=== PATIENT | male | born 1930 | race Caucasian/White ===

== ENCOUNTER 2019-04-11 13:43 | Inpatient (IN) ==
--- NOTE | 2019-04-11 14:34 | Diag Imaging Result Doc PS360 ---
EXAM: CHEST-2 VIEWS - 04/11/2019 HISTORY: fever, cough TECHNIQUE: Chest two views COMPARISON: 03/18/2019 FINDINGS: Heart size is normal. There is tortuosity thoracic aorta similar to prior. Inspiration is mildly shallow. There are COPD changes. There is chronic pleural thickening along the posterior right thorax that the right apex. There is mild pulmonary scarring at the right apex. There is no acute consolidation, pleural effusion, or pneumothorax identified. IMPRESSION: Mildly shallow inspiration. COPD changes. Chronic pleural thickening on the right. No discrete pneumonia. Electronically signed by Ander Katz 04/11/2019 2:32 PM
[2019-04-11 16:15] LABS: BASO# 0.04 X1000 (0.0-0.2); BASO% 0.3 % (0.0-0.8); HEMATOCRIT 39.5 % (42.0-52.0); HEMOGLOBIN 11.9 g/dL (14.0-18.0); IMM GRAN% 0.7 % (0.0-0.5); LYMPH# 1.07 X1000 (1.2-3.4); MCH 29.8 PG (27-31); MCHC 30.1 g/dL (33-37); MCV 98.8 FL (81-99); MONO# 1.56 X1000 (0.11-0.59); MONO% 10.3 % (1.7-9.3); MPV 11.5 FL (7.4-10.4); NEUT# 12.43 X1000 (1.4-6.5); NEUT% 81.7 % (42.2-75.2); PLT 180 X1000 (130-400)
[2019-04-11] MEDS ORDERED: ZOSYN 3.375 GM in NS 50 ML IV ONE (16:26)
[2019-04-11] MEDS ORDERED: VANCOMYCIN 1 GM/NS 1 GM/250 ML IVPB IV ONE (16:29)
[2019-04-11 16:34] LABS: AGAP 14; ALB/GLOB RATIO 1.1; ALKALINE PHOSPHATASE 105 U/L (32-122); BUN 29 mg/dL (8-22); CALCIUM 9.6 mg/dL (8.8-10.2); CHLORIDE 97 mmol/L (98-107); COSMO 287; CREATININE 0.9 mg/dL (0.7-1.2); ESTIMATED GFR > 60; GLUCOSE 122 mg/dL (70-104); GOT 26 U/L (10-34); GPT 20 U/L (10-44); POTASSIUM 5.1 mmol/L (3.5-5.1); SODIUM 140 mmol/L (136-145); TCO2 29 mmol/L (25-35); TOTAL BILIRUBIN 0.23 mg/dL (0.20-1.00); TOTAL PROTEIN 7.8 g/dL (6.3-8.3)
--- NOTE | 2019-04-11 17:55 | PROVIDER DOCUMENTATION ---
This chart was entered by Kera Shirley Scribe, acting as scribe for Tea Wilhelm MD. HPI-Respiratory General - General Chief Complaint: Cough Stated Complaint: COUGHING Time Seen by Provider: 04/11/19 14:01 Source: family Allergies/Adverse Reactions: Patient Allergies Allergy/AdvReac Type Severity Reaction Status Date / Time adhesive Allergy Severe RASH Verified 04/11/19 17:45 lorazepam [From Ativan] AdvReac HYPERACTIVI Verified 04/11/19 17:45 TY zolpidem [From Ambien] AdvReac Hyperactivi Verified 04/11/19 17:45 ty Home Medications: Home Medication List Medication Instructions Recorded Confirmed Last Taken Type Furosemide [Lasix] 40 mg PEG QAM 12/07/17 04/12/19 08/11/18 21:00 History 40 Levothyroxine [Synthroid] 200 microgm PEG DAILY 12/07/17 04/12/19 08/11/18 08:00 History 200 Omeprazole Oral Susp [Prilosec 20 mg PEG BID 12/07/17 04/12/19 08/11/18 18:00 History Oral Suspension] 20 Paroxetine HCl 20 mg PEG QAM #30 tab 12/31/17 04/12/19 08/11/18 08:00 Rx 20 Ropinirole HCl [Requip] 2 mg PEG QHS #30 tab 12/31/17 04/12/19 08/11/18 21:00 Rx 2 Acetaminophen Liquid [Tylenol 1,000 mg PEG 4XDAY PRN PRN 02/13/18 04/12/19 08/11/18 21:00 History Liquid] 1000 Donepezil [Aricept] 10 mg PEG DAILY 02/13/18 04/12/19 08/11/18 08:00 History 10 Gabapentin 5 - 10 ml PEG QHS 02/13/18 04/12/19 08/11/18 21:00 History 5 Tramadol HCl [Ultram] 50 mg PEG QHS 02/13/18 04/12/19 08/11/18 21:00 History 50 Sucralfate [Carafate Liquid] 1 gm PEG Q6H udc 02/17/18 04/12/19 08/11/18 21:00 Rx 1 Colesevelam Powder [Welchol Powder] 1 dose PEG BID 08/09/18 04/12/19 08/10/18 History 1 Modafinil 1 tab PEG DAILY 08/09/18 04/12/19 08/11/18 08:00 History 1 Fexofenadine HCl [Children's 2 tsp PEG BID 01/31/19 04/12/19 Unknown History Rashida Allergy] Montelukast Sodium [Singulair] 10 mg PO QHS 04/12/19 04/12/19 Unknown History Albuterol 2.5MG/Ipratrop 0.5MG 3 ml INH RTQ4H neb 04/14/19 Unknown Rx [Duoneb (A & A)] Amoxicillin/Pot Clavulanate 600 ml PO Q12HR #100 bottle 04/14/19 Unknown Rx [Augmentin Liquid] Budesonide/Formoterol Inhaler 2 puff INH RTBID inhaler 04/14/19 Unknown Rx [Symbicort 80/4.5 Microgm Inhaler] Carvedilol [Coreg] 3.125 mg PO BID #60 tab 04/14/19 Unknown Rx Dicyclomine [Bentyl] 10 mg PEG BID cap 04/14/19 Unknown Rx Potassium Chloride 10% Liquid 20 meq PEG DAILY udc 04/14/19 Unknown Rx Ropinirole [Requip] 2 mg PEG QHS tab 04/14/19 Unknown Rx - History of Present Illness-Resp Nature of Presenting Problem: pt is an 88 yowm c/o at bedside sts pt has had productive cough w/intermittent fever for 3-4days. sts pt has hx of pneumonia w/aspiration and wanted to come to er so pt could be checked out instead of making pcp appt. pt has JG tube, was placed in December. pt has hx of throat cancer and finished chemo and radiation in 2002. sts they usually tx his pnu at home w/levaquin and other antibiotics. pcp is Dr. Velazco. o2 is in place. Quality of Pain: reports: none Severity in ED: reports: moderate Onset/Duration: reports: 3 days ago, 4 days ago Timing: reports: still present Context: reports: aspiration/choking, other (hx pnu) Exposure: reports: unknown cause Cough Quality/Degree: reports: productive cough Episode Frequency: occasional episodes Current Respiratory Medication Therapy: Initiated see nurses note Modifying Factors: improves with: lying down (worsens) Associated Symptoms: reports: fever/chills Similar Symptoms Previously?: Yes Review of Systems - Adult - REVIEW OF SYSTEMS - ADULT Constitutional: reports: see HPI, fever. denies: chills, fatique, night sweats Eyes: reports: no symptoms reported Ears, Nose, Mouth & Throat: reports: no symptoms reported Cardiovascular: reports: no symptoms reported Respiratory: reports: see HPI, cough, excessive sputum production. denies: dyspnea on exertion, hemoptysis, wheezing Gastrointestinal: reports: no symptoms reported Genitourinary: reports: no symptoms reported Musculoskeletal: reports: no symptoms reported Integumentary: reports: no symptoms reported Neurological: reports: no symptoms reported Psychiatric: reports: no symptoms reported Endocrine: reports: no symptoms reported Hematologic/Lymphatic: reports: no symptoms reported Allergic/Immunologic: reports: no symptoms reported All Other Systems: Reviewed and Negative Past History - Adult - PAST MEDICAL HISTORY-ADULT Review of Records: reports: Nursing Assessment Review, Medications Reviewed, Social history reviewed & non-contributory. 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 ) Obstetrical/Gynecological: reports: denies history Genitourinary: reports: denies history, kidney stones Musculoskeletal: reports: denies history Neurological: reports: denies history Endocrine/Immune: reports: cancer (throat), thyroid disorder (hypothyroid) Other Conditions: reports: other cancer (throat), cataract/glaucoma, MRSA, other (sleep apnea) - PRIOR SURGERIES/PROCEDURES Surgical/Procedure History: reports: cholecystectomy, indwelling device (JG tube), orthopedic (extremity) (toe amputation), joint replacement (knee) - IMMUNIZATION STATUS Childhood Immunizations: See Nurse Assessment Flu Vaccine: See Nurse Assessment - FAMILY HISTORY Family History: reviewed, not pertinent - SOCIAL HISTORY Smoking: other (former smoker) Substance Use: none/never Physical Exam-General - PHYSICAL EXAM-ADULT Initial Vital Signs Reviewed: Yes - CONSTITUTIONAL General Appearance: alert, mild distress. negative: cachetic, lethargic, combative - EYES Eyes: PERRL/EOMI, pink conjunctivae - HEAD, EARS, NOSE, MOUTH & THROAT HENMT: normocephalic/atraumatic, moist mucous membranes - NECK Neck: non-tender, full range of motion, supple, normal inspection - RESPIRATORY Respiratory: chest non-tender, normal breath sounds, no pleuratic chest pain, no respiratory distress, no accessory muscle use, rhonchi (bilat low bases). ne gative: lungs clear, wheezing, decreased rate, increased rate - CARDIOVASCULAR Cardiovascular: normal peripheral pulses, no edema, no gallop, no JVD, no murmur , tachycardia. negative: regular rate, rhythm, JVD, bradycardia, irregularly irregular - GASTROINTESTINAL (ABDOMEN) Abdominal Exam: normal bowel sounds, non tender, soft - MUSCULOSKELETAL Back Exam: normal inspection Extremity: normal range of motion, non-tender, normal inspection Peripheral Pulses: radial (R): 2+, radial (L): 2+ - SKIN Integumentary: normal color, normal turgor, warm/dry - NEUROLOGIC Neurologic: grossly normal, no motor/sensory deficits - PSYCHIATRIC Psych/Mental Status: normal mood/affect, normal thought content, normal thought process, oriented x 3 Progress - PLAN OF CARE/RESULTS Progress/Plan/Lab Results: Orders Category Date Time Status Admit [facility] Routine AdmDCTranf 04/11/19 19:59 Active Activity - Up with Assistance ORDERED Care 04/11/19 19:59 Active Apply Mechanical Device [QM] ORDERED Care 04/11/19 19:59 Completed Cardiac Monitoring DIRECTED Care 04/11/19 18:38 Completed DVT/PE Risk Assess/Protocol [QM] ORDERED Care 04/11/19 19:59 Active Elevate Head of Bed DIRECTED Care 04/11/19 19:59 Active Encourage Fluids DIRECTED Care 04/11/19 19:59 Active IV Insertion ORDERED Care 04/11/19 18:38 Completed Intake and Output-Strict Q 8-HR ASSESS Care 04/11/19 19:59 Active Notify MD of + Sepsis Screen NOW Care 04/11/19 18:38 Completed Notify Physician As Ordered Care 04/11/19 18:38 Active Nursing- Assist w/ IS as order ORDERED Care 04/11/19 19:59 Active Resuscitation Status Routine Care 04/11/19 17:25 Completed Turn, Cough and Deep Breathe Q2HR Care 04/11/19 19:59 Active Vital Signs Order Q 8-HR ASSESS Care 04/11/19 19:59 Active CHEST-2 VIEWS [RAD] Routine Exams 04/12/19 06:00 Completed CHEST-2 VIEWS [RAD] Stat Exams 04/11/19 14:02 Completed BLOOD CULTURE [BLDCUL] Stat Lab 04/11/19 15:42 Completed CBC WITH DIFF [HEME] Routine Lab 04/12/19 05:40 Completed CBC WITH DIFF [HEME] Stat Lab 04/11/19 15:37 Completed CK PROFILE [SP CHEM] Stat Lab 04/11/19 15:37 Completed COMPREHENSIVE METABOLIC PANEL [CHEM] Routine Lab 04/12/19 05:40 Completed COMPREHENSIVE METABOLIC PANEL [CHEM] Stat Lab 04/11/19 15:37 Completed INFLUENZA SCREEN A/B Stat Lab 04/11/19 16:14 Completed LACTATE, PLASMA [CHEM] Lab 04/11/19 18:46 Completed LACTATE, PLASMA [CHEM] Lab 04/11/19 22:40 Completed LACTATE, PLASMA [CHEM] Stat Lab 04/11/19 15:37 Completed MAGNESIUM [CHEM] Stat Lab 04/11/19 15:37 Completed PROTIME WITH INR [COAG] Stat Lab 04/11/19 15:37 Completed PTT [COAG] Stat Lab 04/11/19 15:37 Completed SPUTUM CULTURE WITH GRAM STAIN [RM] Routine Lab 04/13/19 04:00 Completed TROPONIN T Stat Lab 04/11/19 15:37 Completed UA [URINALYSIS W/POSS RFLX CULT] [URINALYSIS] Stat Lab 04/11/19 17:49 Completed URINALYSIS W/POSS RFLX CULT [URINALYSIS] Stat Lab 04/11/19 18:46 Completed 0.9% Sodium Chloride Inj [Ns] 1,000 ml Med 04/11/19 19:59 Discontinued IV 65 mls/hr Acetaminophen Liquid [Tylenol Liquid] Med 04/11/19 19:59 Discontinued 1,000 mg PEG 4XDAY PRN PRN Acetaminophen [Tylenol] Med 04/11/19 19:59 Discontinued 650 mg PO Q4H PRN PRN Albuterol 2.5MG/Ipratrop 0.5MG [Duoneb (A & A)] Med 04/11/19 19:59 Discontinued 3 ml INH RTQ4H Budesonide/Formoterol Inhaler [Symbicort 80/4.5 Microgm Med 04/12/19 07:30 Discontinued Inhaler] 2 puff INH RTBID Colesevelam Powder [Welchol Powder] Med 04/11/19 21:00 Discontinued 3.75 gm PEG BID Dicyclomine [Bentyl] Med 04/11/19 21:00 Discontinued 10 mg PEG BID Diphenhydram/PE/Dm/Acetamin/GG [Mucinex Fast-Max Day- Med 04/11/19 21:00 Discontinued Nite Liq] 2 tsp PO QHS Donepezil [Aricept] Med 04/12/19 09:00 Discontinued 10 mg PEG DAILY Fexofenadine HCl [Children's Rashida Allergy] Med 04/11/19 21:00 Discontinued 2 tsp PEG BID Furosemide [Lasix] Med 04/12/19 09:00 Discontinued 40 mg PEG QAM Gabapentin [Neurontin Liquid] Med 04/11/19 21:00 Discontinued 500 mg PEG QHS Levothyroxine [Synthroid] Med 04/12/19 07:00 Discontinued 200 microgm PEG DAILY@0700 Modafinil Med 04/12/19 09:00 Discontinued 1 tab PEG DAILY Omeprazole Oral Susp [Prilosec Oral Suspension] Med 04/12/19 09:00 Disconti nued 20 mg MISC QAM Paroxetine [Paxil] Med 04/12/19 09:00 Discontinued 20 mg PEG QAM Piperacillin/Tazobactam [Zosyn] 3.375 gm Med 04/11/19 16:26 Discontinued 0.9% Sodium Chloride Inj [Ns] 50 ml IV NOW Piperacillin/Tazobactam [Zosyn] 3.375 gm Med 04/11/19 23:00 Discontinued 0.9% Sodium Chloride Inj [Ns] 50 ml IV Q6H Potassium Chloride 10% Liquid Med 04/12/19 09:00 Discontinued 20 meq PEG DAILY Ropinirole [Requip] Med 04/11/19 21:00 Discontinued 2 mg PEG QHS Sucralfate [Carafate Liquid] Med 04/11/19 19:59 Discontinued 1 gm PEG Q6H Tramadol [Ultram] Med 04/11/19 21:00 Discontinued 50 mg PEG QHS Vancomycin 1 gm/Ns Med 04/11/19 16:29 Discontinued 1 gm in 250 ml IV NOW Aerosol Treatments Routine Oth 04/11/19 19:59 Completed Aerosol Treatments Stat Oth 04/11/19 19:59 Completed Incentive Spirometer Routine Ot 04/11/19 19:59 Completed MDI Treatments Stat Ot 04/11/19 19:59 Completed Oxygen Device Routine Ot 04/11/19 19:59 Completed Oxygen Device Stat [facility] 04/11/19 18:38 Completed Pulse Oximetry Routine Ot 04/11/19 19:59 Completed Suction Therapy Stat Ot 04/11/19 16:51 Completed Transfer/Admit Order [TRANSFER] Routine Transfer 04/11/19 17:22 Completed Result Diagrams: 04/12/19 05:40 04/12/19 05:40 - XRAY 1 XRAY Study: Chest Impression: Abnormal, See EMR Report ( EXAM: CHEST-2 VIEWS - 04/11/2019 HISTORY: fever, cough TECHNIQUE: Chest two views COMPARISON: 03/18/2019 FINDINGS: Heart size is normal. There is tortuosity thoracic aorta similar to prior. Inspiration is mildly shallow. There are COPD changes. There is chronic pleural thickening along the posterior right thorax that the right apex. There is mild pulmonary scarring at the right apex. There is no acute consolidation, pleural effusion, or pneumothorax identified. IMPRESSION: Mildly shallow inspiration. COPD changes. Chronic pleural thickening on the right. No discrete pneumonia. Electronically signed by Ander Katz 04/11/2019 2:32 PM) - CONSULTS/PCP/HOSPITALIST Notification #1 *Consult/PCP/Hospitalist*: Dr. Jordan Time Discussed: 16:46 Consult Disposition: Will see in ED Departure - Departure Date of Disposition Decision: 04/11/19 Time of Disposition Decision: 17:55 DIAGNOSIS: Pneumonia, Aspiration pneumonia due to gastric secretions Disposition: ADMITTED INPATIENT 09 Certified Medical Emergency: Emergent Condition: Stable - Critical Care Note This patient required my direct & personal management of CC.: No Attestation - Physician/ ETIENNE Attestation Patient care was provided by Advanced Practice Provider:: No The physician spent face to face time with patient:: Yes Advanced Practice Provider documentation review:: Supervising physician onsite and consulted in the evaluation and care of this patient. The physician did have a face to face encounter with the patient. This chart was documented by the indicated scribe, (Krea Shirley Scribe) and accurately reflects the services I performed and decisions made by me, Tea Wilhelm MD, as attested by the provider's signature.
[2019-04-11 17:59] LABS: URINE SOURCE CLEAN CATCH
[2019-04-11 18:03] LABS: BILIRUBIN URINE NEGATIVE (NEGATIVE); BLOOD URINE NEGATIVE (NEGATIVE); COLOR YELLOW; GLUCOSE URINE NEGATIVE (NEGATIVE); KETONE URINE NEGATIVE (NEGATIVE); LEUKOCYTES URINE NEGATIVE (NEGATIVE); NITRITE URINE NEGATIVE (NEGATIVE); PROTEIN URINE TRACE mg/dL (NEGATIVE); SP GRAVITY URINE 1.022; TURBIDITY URINE CLEAR (CLEAR); UROBILINOGEN URINE NORMAL (NORMAL)
[2019-04-11 18:05] LABS: UR EPITHELIAL CELLS <10 /HPF (<10); URINE BACTERIA NEGATIVE /HPF; URINE RBC <10 /HPF (<10); URINE WBC <10 /HPF (<10)
--- NOTE | 2019-04-11 18:10 | HISTORY AND PHYSICAL ---
HISTORY OF PRESENT ILLNESS: Mr. Reis is an 88-year-old male patient of Dr. Luisito Velazco. 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 He has had recurrent aspiration pneumonia. He has osteoarthritis, gastroesophageal reflux disease, restless legs syndrome, depression, and mild dysphagia and hypothyroidism. He presented for evaluation. The last 3 or 4 days, he has had increased cough. His is concerned. She felt like he had a little bit of delirium today and he just finished a 2 week course of Levaquin, I believe, as an outpatient. I think he had a G-tube placed in 2012. I think they did a J-tube to G-tube in 2018 and that has cut down his aspiration under Dr. Sylvester's direction. He is also followed by Dr. Burgess. In the emergency room, he did not have a true infiltrate on x-ray, but he had some rhonchi. His white count was 15,000. was concerned about his coughing and decided to go ahead and admit him and treat him for aspiration pneumonitis. We will check another x-ray in the morning. PAST MEDICAL HISTORY: 1. History of squamous cell carcinoma of the base of the tongue, status post radiation treatment and chemotherapy in 2002. 2. Recurrent aspiration pneumonia. 3. Osteoarthritis. 4. Reflux disease. 5. Vascular dementia. 6. Restless legs syndrome. 7. Depression. 8. Myelodysplasia. 9. He fell while in the [employer]. He was over by [place]. He fell about 40 or 50 feet and crushed and broke his right ankle. He has had a foot sore and I think that same foot, the right foot in the past, which had MRSA that has healed well. REVIEW OF HIS LIST OF MEDICATION: He is on levothyroxine 200 mcg daily, Prilosec liquid 20 mg in 5 mL twice a day, Carafate liquid 4 times a day, Aricept 10 mg once a day, Lasix 40 mg 1 to 2 tablets a day, modafinil which is Provigil 200 mg tablet daily, Paxil 20 mg a day, Requip 2 mg 1 at bedtime, tramadol 50 mg at bedtime, Neurontin 250 mg in 5 mL 5 to 10 mL at bedtime, dicyclomine 10 mg or 5 mL 2 times a day, Welchol 3.75 g powder 2 times a day, Rashida 2 teaspoons twice a day, Mucinex at bedtime, potassium chloride 10% 3 teaspoons daily in the morning, Singulair 10 mg at bedtime and Tylenol liquid as needed for pain. ALLERGIES: Patient is allergic to adhesive tape, unable to tolerate Ativan. FAMILY HISTORY: The patient's mother passed at age 82 secondary to complications of metastatic breast cancer. The patient's father passed in his 80s secondary to complications of head and neck cancer. SOCIAL HISTORY: Patient is former smoker, having smoked 2 packs cigarettes per day for 30+ years. Stopped in 1979. Denies alcohol or illicit drugs. REVIEW OF SYSTEMS: General: He is not aware of any weight gain or loss. They did not record any fever, but suspects subjective fever with some delirium. HEENT: No change in visual or hearing acuity. Neck: No neck pain or adenopathy. Respiratory: No increased work of breathing or dyspnea, but he has had increased cough and bronchial irritation in the last 3 or 4 days. No real significant sputum production. Cardiovascular: No chest pain or tachy palpitation. Gastrointestinal and Genitourinary: No gross hematuria or dysuria. He has constant chronic diarrhea since he started the tube feeding. He is on Welchol now. Musculoskeletal/Neurologic: No focal complaints or changes. Endocrinologic/hemologic: No significant history. He does have myelodysplasia by history. PHYSICAL EXAMINATION: GENERAL: In the emergency room he is awake and alert. He is coughing pretty frequently. Breathing comfortably. Has O2 per nasal cannula in place. He is alert and oriented x3. His is at the bedside. VITAL SIGNS: Temp 99.1 degrees, pulse 109, respirations 19, blood pressure 138/75. HEENT: Pupils are equal and round. NECK: No distended neck veins. CVP estimated less than 6 cm from right atrium. LUNGS: Clear anterior and lateral. You can hear some scattered rhonchi at times, but appears to clear. CARDIOVASCULAR: Regular rhythm and rate without murmur or S3. PMI nondisplaced. Carotid, radial, and femoral pulses 2+ and symmetrical. ABDOMEN: Soft. EXTREMITIES: Feet are good capillary refill and warm. Pedal pulses 2+ and symmetrical. ABDOMEN: Is soft, nondistended. The insertion site of the JG tube is unremarkable. SKIN: Warm and dry. No edema. His nails are long, thick. LABORATORY DATA: White count 15,200. Hematocrit is 39. Platelet count is 180,000. Sodium 140, potassium 5.1, chloride 97, BUN 29, creatinine 0.9, blood sugar is 122. Liver functions unremarkable. Alkaline phosphatase 105. Albumin is 4.0. Chest x-ray mildly shallow inspiration, COPD changes, chronic pleural thickening of the right. No discrete pneumonia. ASSESSMENT AND PLAN: 1. Has a propensity for aspiration. I do not see any infiltrate on the x-ray, but his white count is mildly elevated and he has bronchial irritation. Just finished a 2 week course of Levaquin. I will treat him empirically for aspiration pneumonitis. We will give him some albuterol breathing treatments. He may benefit from a steroid breathing treatment as well. 2. He has a JG tube and I think he gets feeding at night. I think I will hold the feeding tonight just to give him a little bit of a break and see if he can show some improvement, especially of this irritation and reflux. He is already on a proton pump inhibitor. I will continue that. 3. History of primary hypothyroidism. Continue his Synthroid. We will check his T4 and TSH. 4. History of gastroesophageal reflux and numerous episodes of aspiration pneumonitis. Continue his Carafate 1 g q.6 and I think he is getting omeprazole 20 mg. I think he is getting that twice a day. 5. History of squamous cell carcinoma of the base of the tongue. Status post radiation treatment chemotherapy back in 2002. 6. History of vascular dementia. Continue his current Aricept. 7. Restless legs syndrome. We will continue his Requip. 8. Depression. 9. Myelodysplasia. Blood counts appear to be pretty stable. cc: Donald Jordan MD
[2019-04-11 18:54] LABS: URINE SOURCE CLEAN CATCH
[2019-04-11 18:58] LABS: BILIRUBIN URINE NEGATIVE (NEGATIVE); BLOOD URINE NEGATIVE (NEGATIVE); COLOR YELLOW; GLUCOSE URINE NEGATIVE (NEGATIVE); KETONE URINE NEGATIVE (NEGATIVE); LEUKOCYTES URINE NEGATIVE (NEGATIVE); NITRITE URINE NEGATIVE (NEGATIVE); PH URINE 7.5; PROTEIN URINE TRACE mg/dL (NEGATIVE); SP GRAVITY URINE 1.022; TURBIDITY URINE CLEAR (CLEAR); UROBILINOGEN URINE NORMAL (NORMAL)
[2019-04-11 19:00] LABS: UR EPITHELIAL CELLS <10 /HPF (<10); URINE BACTERIA NEGATIVE /HPF; URINE RBC <10 /HPF (<10); URINE WBC <10 /HPF (<10)
[2019-04-11 19:23] LABS: INR 1.06
[2019-04-11 19:24] LABS: PTT 33.2 Seconds (22.3-41.8)
[2019-04-11] MEDS ORDERED: TYLENOL PO PRN (19:59)
[2019-04-11] MEDS ORDERED: TYLENOL LIQUID PEG PRN (19:59)
[2019-04-11] MEDS: WELCHOL POWDER PEG SCH (20:42)
[2019-04-11] MEDS ORDERED: ULTRAM PEG SCH (21:00)
[2019-04-11] MEDS ORDERED: [UNRECOGNIZED DRUG - REMARK] PEG SCH (21:00)
[2019-04-11] MEDS ORDERED: [UNRECOGNIZED DRUG - MIXTURE] PO SCH (21:00)
[2019-04-11] MEDS: NS 1,000 ML IV SCH (22:28)
[2019-04-11] MEDS: ZOSYN 3.375 GM in NS 50 ML IV SCH (22:29)
[2019-04-11] MEDS: CARAFATE LIQUID PEG SCH (22:30)
[2019-04-11] MEDS: BENTYL PEG SCH (22:31)
[2019-04-11] MEDS: REQUIP PEG SCH (22:31)
[2019-04-11] MEDS: NEURONTIN PEG SCH (22:32)
[2019-04-11] MEDS: DUONEB (A & A) INH SCH ×2 (23:39→23:41)
[2019-04-12] MEDS: DUONEB (A & A) INH SCH ×6 (03:35→23:28)
[2019-04-12] MEDS: ZOSYN 3.375 GM in NS 50 ML IV SCH ×4 (05:29→22:13)
[2019-04-12] MEDS: CARAFATE LIQUID PEG SCH ×4 (05:29→22:12)
[2019-04-12] MEDS: SYNTHROID PEG SCH (05:59)
[2019-04-12 06:17] LABS: BASO# 0.03 X1000 (0.0-0.2); BASO% 0.4 % (0.0-0.8); EOS# 0.07 X1000 (0.0-0.7); EOS% 0.9 % (0.0-10.0); HEMATOCRIT 36.7 % (42.0-52.0); IMM GRAN# 0.03 X1000 (0.0-0.04); IMM GRAN% 0.4 % (0.0-0.5); LYMPH# 0.63 X1000 (1.2-3.4); LYMPH% 8.3 % (20.5-51.1); MCH 30.1 PG (27-31); MCV 100.3 FL (81-99); MONO# 1.08 X1000 (0.11-0.59); MONO% 14.3 % (1.7-9.3); MPV 11.5 FL (7.4-10.4); NEUT# 5.71 X1000 (1.4-6.5); NEUT% 75.7 % (42.2-75.2); PLT 130 X1000 (130-400); RBC 3.66 XMIL (4.7-6.1); WBC 7.55 X1000 (4.8-10.8)
[2019-04-12 06:45] LABS: AGAP 7; ALB/GLOB RATIO 0.9; ALBUMIN 3.2 g/dL (3.5-5.0); ALKALINE PHOSPHATASE 88 U/L (32-122); BUN 23 mg/dL (8-22); CALCIUM 8.8 mg/dL (8.8-10.2); CHLORIDE 102 mmol/L (98-107); COSMO 284; CREATININE 0.8 mg/dL (0.7-1.2); ESTIMATED GFR > 60; GLUCOSE 115 mg/dL (70-104); GOT 21 U/L (10-34); GPT 16 U/L (10-44); POTASSIUM 3.9 mmol/L (3.5-5.1); SODIUM 140 mmol/L (136-145); TCO2 31 mmol/L (25-35); TOTAL BILIRUBIN 0.21 mg/dL (0.20-1.00); TOTAL PROTEIN 6.7 g/dL (6.3-8.3)
[2019-04-12] MEDS: SYMBICORT 80/4.5 MICROGM INHALER INH SCH ×2 (07:50→19:54)
--- NOTE | 2019-04-12 08:43 | Diag Imaging Result Doc PS360 ---
EXAM: CHEST-2 VIEWS HISTORY: Pneumonia TECHNIQUE: Two views COMPARISON: 04/11/2019 FINDINGS: Small right pleural effusion versus pleural thickening. No cardiomegaly. No pulmonary edema. Mild increased markings in the left base similar to the prior exam. IMPRESSION: Stable chest Electronically signed by Marcus Randall 04/12/2019 8:41 AM
[2019-04-12] MEDS ORDERED: MODAFINIL PEG SCH (09:00)
[2019-04-12] MEDS ORDERED: PRILOSEC ORAL SUSPENSION MISC SCH (09:00)
[2019-04-12] MEDS: BENTYL PEG SCH ×2 (11:15→21:28)
[2019-04-12] MEDS: PAXIL PEG SCH (11:15)
[2019-04-12] MEDS: WELCHOL POWDER PEG SCH ×2 (11:16→21:28)
[2019-04-12] MEDS: ARICEPT PEG SCH (11:16)
[2019-04-12] MEDS: LASIX PEG SCH (11:16)
[2019-04-12] MEDS: POTASSIUM CHLORIDE 10% LIQUID PEG SCH (11:17)
[2019-04-12] MEDS ORDERED: ROBITUSSIN-AC PO PRN (12:48)
[2019-04-12] MEDS ORDERED: LASIX IV ONE (12:49)
[2019-04-12] MEDS: SOLU-MEDROL IV SCH ×2 (13:31→21:28)
--- NOTE | 2019-04-12 14:28 | PROGRESS NOTE ---
DATE: 04/12/2019 Mr. Reis was admitted to [facility] with an acute chronic obstructive pulmonary disease exacerbation complicated by suspected aspiration pneumonitis. He presented to the ER with increasing shortness of breath, pleuritic chest pain, persistent worsening nonproductive cough and a leukocytosis of 15,000. His initial chest x-ray demonstrated no obvious infiltrates. This morning he continues with a persistent nonproductive cough and pleuritic chest pain with deep inspiration and paroxysms of cough, he continues with a low grade fever but has no nausea or hard shaking rigors. Repeat chest x-ray demonstrated hyperinflation of the lung mendoza with bilateral pleural thickening and no infiltrate was noted. Vital signs: Temperature 99.1 degrees, pulse 112, respiratory rate 18, BP 117/61. CV: Tachycardic. Regular S1, S2. Lungs: Faint crackles in the right base with occasional end-expiratory wheezing with forced expiration. Abdomen: Soft, nontender, with active bowel sounds. Extremities: Without edema. LAB: A CBC demonstrated white count of 7.55, hemoglobin 11.0, hematocrit 36.7 and a platelet count of 130,000. Electrolytes demonstrated sodium 140, potassium 3.9, chloride 102, BUN 23, creatinine 0.8 and glucose 115. ASSESSMENT AND PLAN: 1. Acute chronic obstructive pulmonary disease exacerbation complicated by aspiration pneumonia. He continues with a low grade fever, persistent nonproductive cough and pleuritic chest pain. We will continue nebulizer treatments q.4 hours and broad-spectrum antibiotics including Zosyn 3.375 g IV q.6 hours. I will add low-dose methylprednisolone 40 mg IV q.12 hours and continue Symbicort as well as DuoNeb nebulizer treatments. 2. Gastroesophageal reflux disease. I am going to increase the Prilosec oral suspension to 20 mg b.i.d. to further reduce the risk of aspiration. cc: MD Donald Paz MD
[2019-04-12] MEDS: NS 1,000 ML IV SCH (16:42)
[2019-04-12] MEDS: REQUIP PEG SCH (21:28)
[2019-04-12] MEDS: PRILOSEC ORAL SUSPENSION MISC SCH (21:37)
[2019-04-12] MEDS: NEURONTIN PEG SCH (22:12)
[2019-04-13] MEDS: DUONEB (A & A) INH SCH ×6 (03:56→23:34)
[2019-04-13] MEDS: CARAFATE LIQUID PEG SCH ×3 (04:51→20:34)
[2019-04-13] MEDS: ZOSYN 3.375 GM in NS 50 ML IV SCH ×3 (04:51→23:50)
[2019-04-13] MEDS: SOLU-MEDROL IV SCH ×3 (04:51→20:33)
[2019-04-13] MEDS: SYNTHROID PEG SCH (06:46)
[2019-04-13] MEDS: SYMBICORT 80/4.5 MICROGM INHALER INH SCH ×2 (07:41→19:34)
--- NOTE | 2019-04-13 09:49 | PROGRESS NOTE ---
DATE: 04/13/2019 SUBJECTIVE: Mr. Reis was admitted to [facility] with acute COPD exacerbation complicated by an aspiration pneumonitis. His white count has dropped from 15,000 to 7000. He is breathing comfortably. O2 saturations are ranging from 98 to 99 percent on 2 L of O2. He continues with a persistent nonproductive cough, but the cough seems less intense. He is not having any fever, chills, nausea or vomiting. His chest x-ray yesterday demonstrated pleural thickening with a small right pleural effusion. No cardiomegaly. No edema. No infiltrate was noted. OBJECTIVE: Temperature 97.9 degrees, pulse 104, respirations 16 and BP 127/65. CV: Regular rate and rhythm. Lungs: Scattered coarse rhonchi with occasional end expiratory wheezing with forced expiration. Abdomen: Soft and nontender with active bowel sounds. Extremities: Without edema. ASSESSMENT AND PLAN: Acute chronic obstructive pulmonary disease exacerbation complicated by aspiration pneumonitis. Clinically, he is better. We will continue Symbicort 2 puffs b.i.d., albuterol nebulized q.4 hours, and low-dose IV methylprednisolone in combination with intravenous Zosyn. Because of his recurrent aspiration, I will increase the omeprazole to 20 mg b.i.d. cc: MD Donald Paz MD
[2019-04-13] MEDS: NS 1,000 ML IV SCH (09:56)
[2019-04-13] MEDS: LASIX PEG SCH (09:57)
[2019-04-13] MEDS: BENTYL PEG SCH ×2 (09:57→20:34)
[2019-04-13] MEDS: ARICEPT PEG SCH (09:57)
[2019-04-13] MEDS: PAXIL PEG SCH (09:57)
[2019-04-13] MEDS: POTASSIUM CHLORIDE 10% LIQUID PEG SCH (09:58)
[2019-04-13] MEDS: WELCHOL POWDER PEG SCH ×2 (09:58→20:34)
[2019-04-13] MEDS: PRILOSEC ORAL SUSPENSION MISC SCH ×2 (09:58→20:32)
[2019-04-13] MEDS: NEURONTIN PEG SCH (20:32)
[2019-04-13] MEDS: REQUIP PEG SCH (20:34)
[2019-04-14] MEDS: NS 1,000 ML IV SCH (01:33)
[2019-04-14] MEDS: CARAFATE LIQUID PEG SCH ×3 (02:24→10:55)
[2019-04-14] MEDS: DUONEB (A & A) INH SCH ×3 (03:28→11:19)
[2019-04-14] MEDS: SOLU-MEDROL IV SCH (05:20)
[2019-04-14] MEDS: ZOSYN 3.375 GM in NS 50 ML IV SCH ×2 (05:21→12:45)
[2019-04-14] MEDS: SYNTHROID PEG SCH (06:28)
[2019-04-14] MEDS: SYMBICORT 80/4.5 MICROGM INHALER INH SCH (07:33)
[2019-04-14] MEDS ORDERED: SOLU-MEDROL IV SCH (08:46)
[2019-04-14] MEDS ORDERED: COREG PO SCH (09:00)
[2019-04-14] MEDS: ARICEPT PEG SCH (09:16)
[2019-04-14] MEDS: BENTYL PEG SCH (09:16)
[2019-04-14] MEDS: POTASSIUM CHLORIDE 10% LIQUID PEG SCH (09:16)
[2019-04-14] MEDS: PAXIL PEG SCH (09:16)
[2019-04-14] MEDS: WELCHOL POWDER PEG SCH (09:16)
[2019-04-14] MEDS: LASIX PEG SCH (09:23)
[2019-04-14] MEDS: PRILOSEC ORAL SUSPENSION MISC SCH (09:23)
[2019-04-14 11:48] VITALS: BP 154/77
[2019-04-14] MEDS ORDERED: AUGMENTIN LIQUID PO SCH (21:00)
--- NOTE | 2019-04-15 15:09 | DISCHARGE SUMMARY ---
ADMISSION DATE: 04/11/2019 DISCHARGE DATE: 04/14/2019 DISCHARGE DIAGNOSES: 1. Acute respiratory failure with hypoxia. 2. Acute chronic obstructive pulmonary disease exacerbation. 3. Aspiration pneumonitis. 4. Mild cognitive impairment. 5. Gastroesophageal reflux disease. 6. Primary hypothyroidism. 7. Moderate protein malnutrition. DISCHARGE INSTRUCTIONS: 1. Return to clinic in 1 month to see me, Dr. Luisito Velazco. 2. Activity as tolerated. 3. Diet. He will continue his routine enteral feedings. MEDICATIONS: Augmentin liquid 600 mL q.12 hours for 10 days, Coreg 3.125 mg b.i.d., albuterol nebulized q.4 hours, KCl 10% liquid 20 mEq daily, Symbicort 80/4.5 two puffs b.i.d., Requip 2 mg at night, dicyclomine 10 mg b.i.d., levothyroxine 200 mcg daily, omeprazole suspension 20 mg b.i.d., Lasix 40 mg daily, Paxil 20 mg daily, Aricept 10 mg daily, gabapentin 5 to 10 mL per PEG at bedtime, Carafate liquid 1 g q.6 hours, Welchol powder 1 dose b.i.d., modafinil 150 mg daily, fexofenadine 2 teaspoons b.i.d., Singulair 10 mg daily. DISCHARGE PHYSICAL EXAMINATION: General: This is an elderly, frail, 88-year-old gentleman in no apparent distress. Vital signs: He is afebrile, pulse 95, respirations 17, BP 154/77. CV: Regular rate and rhythm. Lungs: Distant breath sounds with increased period of expiration. Abdomen: Soft nontender, with active bowel sounds. HISTORY AND HOSPITAL COURSE: Mr. Cordell Reis has a longstanding history of COPD and recurrent aspiration pneumonia. He takes all medicines and enteral feedings through a jejunostomy tube. He presented to the hospital with increasing shortness of breath, pleuritic chest pain, worse with deep inspiration and paroxysms of cough, and mild shortness of breath. Chest x-ray demonstrated no obvious infiltrates. He had a leukocytosis of 15,000. The patient was admitted to [facility] where he was treated with supplemental O2, nebulizer treatments, and broad- spectrum antibiotics including Zosyn. Sputum and blood cultures were negative. Over the course of his hospitalization, we were able to gradually wean him off O2, transition him off IV steroids, and continued his nebulizers. We did add Symbicort 80/4.5 two puffs b.i.d. Initial chest x-ray as well as follow-up chest x-rays demonstrated no infiltrates. We increased the Pepcid to 20 mg b.i.d. We checked a room air O2 saturation this morning and his O2 saturation was 95% at rest and with exertion. He will continue DuoNeb nebulizer treatments at home, Symbicort 80/4.5 two puffs b.i.d., and will take a 10 day course of Augmentin liquid 600 mL b.i.d. I will see him back in the office in 1 month for a transition of care visit. Having reached maximum hospital benefit, the patient was discharged in stable condition. cc: MD Donald Paz MD
== END 2019-04-14 14:26 | disposition home or self-care (01) | DRG 871 ==
LOC: ED 13:43 → 1N 19:04
PROVIDERS: ADMIT Emergency Medicine; ATTEND Internal Medicine